=== PATIENT | male | born 1975 | race Caucasian/White ===

== ENCOUNTER 2023-04-26 09:17 | Emergency (ER) | payer MEDICARE ==
[2023-04-26] VITALS (24 sets, daily range): BP systolic 156–190; BP diastolic 91–108
[~2023-04-26] VITALS: Ht 177.8 cm; Wt 95.0 kg
[2023-04-26 09:58] LABS: BASO% 0.1 % (0-3); HEMATOCRIT 30.8 % (39.0-50.0); HEMOGLOBIN 9.8 g/dl (14.0-18.0); IMMATURE GRANULOCYTES 0.4 % (0.0-5.0); LYMPH% 3.3 % (15-41); MEAN CELL VOLUME 103.4 fL CALC (80.0-100.0); MEAN CORPUSCULAR HGB 32.9 pG CALC (26.0-32.0); MEAN CORPUSCULAR HGB CONC 31.8 g/dL CAL (32.0-36.0); MONO% 5.5 % (2-13); NEUT# 10.19 thou/uL (1.82-7.42); NEUT% 89.7 % (42-76); RED BLOOD COUNT 2.98 mill/uL (4.70-6.10); RED CELL DISTRI WIDTH 15.5 % (11.5-15.5)
[2023-04-26 10:31] LABS: ALBUMIN 4.6 g/dL (3.2-5.0); BILIRUBIN, TOTAL 0.6 mg/dL (0.2-1.3); POTASSIUM 4.9 mmol/l (3.5-5.1); TOTAL PROTEIN 7.8 g/dL (6.3-8.2)
[2023-04-26 10:45] LABS: CREATININE 10.7 mg/dL (0.7-1.3)
[2023-04-26] MEDS ORDERED: GABAPENTIN100 MG PO (11:43)
== END 2023-04-26 12:27 | disposition short-term general hospital (02) ==
LOC: ED 09:17
PROVIDERS: Family Medicine
PROC: 5A09357 Assistance with Respiratory Ventilation, Less than 24 Consecutive Hours, Continuous Positive Airway Pressure (ICD-10-PCS; principal; 2023-04-26)
DX: J96.00 Acute respiratory failure, unspecified whether with hypoxia or hypercapnia (principal); I16.1 Hypertensive emergency; I12.0 Hypertensive chronic kidney disease with stage 5 chronic kidney disease or end stage renal disease; E11.22 Type 2 diabetes mellitus with diabetic chronic kidney disease; N18.6 End stage renal disease; Z99.2 Dependence on renal dialysis; Z88.0 Allergy status to penicillin; Z20.822 Contact with and (suspected) exposure to COVID-19

== ENCOUNTER 2023-08-05 16:05 | Emergency (ER) | payer MEDICARE ==
[~2023-08-05] VITALS: Ht 177.8 cm; Wt 90.0 kg
[~2023-08-05 16:05] MED LIST: GABAPENTIN100 MG PO; LEVAQUIN750 M1 PO
[2023-08-05 17:11] VITALS: BP 122/63
[2023-08-05 17:28] LABS: BASO% 0.3 % (0-3); EOS% 1.1 % (0-8); HEMATOCRIT 36.8 % (39.0-50.0); HEMOGLOBIN 11.7 g/dl (14.0-18.0); IMMATURE GRANULOCYTES 0.2 % (0.0-5.0); MEAN CELL VOLUME 103.1 fL CALC (80.0-100.0); MEAN CORPUSCULAR HGB 32.8 pG CALC (26.0-32.0); MEAN CORPUSCULAR HGB CONC 31.8 g/dL CAL (32.0-36.0); MONO% 6.9 % (2-13); NEUT# 7.57 thou/uL (1.82-7.42); NEUT% 85.5 % (42-76); RED BLOOD COUNT 3.57 mill/uL (4.70-6.10); RED CELL DISTRI WIDTH 17.3 % (11.5-15.5)
[2023-08-05 18:16] LABS: ALBUMIN 4.9 g/dL (3.2-5.0); BILIRUBIN, TOTAL 0.6 mg/dL (0.2-1.3); TOTAL PROTEIN 8.3 g/dL (6.3-8.2)
[2023-08-05 18:17] LABS: CREATININE 6.1 mg/dL (0.7-1.3)
[2023-08-05 18:18] LABS: POTASSIUM 5.5 mmol/l (3.5-5.1)
[2023-08-05] MEDS ORDERED: CALCIUM GLUCONATE 1 GM in SODIUM CHLORIDE 0.9% 50 ML IV ONE (19:20)
[2023-08-05] MEDS ORDERED: PROCHLORPERAZINE EDISYLATE 10 MG/2 ML SDV IV ONE (19:20)
[2023-08-05 20:07] VITALS: BP 150/72
[2023-08-05 20:30] VITALS: BP 155/86
[2023-08-05 21:00] VITALS: BP 157/80
[2023-08-05] MEDS ORDERED: COMPAZINE10 MG PO (21:07)
[2023-08-05 21:44] VITALS: BP 157/80
== END 2023-08-05 21:44 | disposition home or self-care (01) ==
LOC: ED 16:05
PROVIDERS: Family Medicine
DX: R11.2 Nausea with vomiting, unspecified (principal); E87.5 Hyperkalemia; I12.0 Hypertensive chronic kidney disease with stage 5 chronic kidney disease or end stage renal disease; E11.22 Type 2 diabetes mellitus with diabetic chronic kidney disease; N18.6 End stage renal disease; Z99.2 Dependence on renal dialysis; Z95.1 Presence of aortocoronary bypass graft; Z87.891 Personal history of nicotine dependence

== ENCOUNTER 2024-03-25 18:30 | Emergency (ER) | payer MEDICARE ==
[2024-03-25] VITALS (12 sets, daily range): BP systolic 133–184; BP diastolic 70–104
[~2024-03-25] VITALS: Ht 177.8 cm; Wt 82.8 kg
[~2024-03-25 18:30] MED LIST changes: +COMPAZINE10 MG PO
[2024-03-25] MEDS ORDERED: ASPIRIN 81 MG/TAB PO ONE (18:35)
[2024-03-25] MEDS ORDERED: SODIUM CHLORIDE 0.9% 500 ML IV ONE (18:45)
[2024-03-25] MEDS ORDERED: NITROGLYCERIN 0.4 MG/TAB SL ONE (18:45)
[2024-03-25] MEDS ORDERED: NITROGLYCERIN IN D5W 250 ML IV ONE (18:45)
[2024-03-25 18:50] LABS: BASO% 0.8 % (0-3); EOS% 3.6 % (0-8); HEMATOCRIT 34.5 % (39.0-50.0); HEMOGLOBIN 10.2 g/dl (14.0-18.0); IMMATURE GRANULOCYTES 0.1 % (0.0-5.0); LYMPH% 6.6 % (15-41); MEAN CORPUSCULAR HGB 32.6 pG CALC (26.0-32.0); MEAN CORPUSCULAR HGB CONC 29.6 g/dL CAL (32.0-36.0); MONO% 7.1 % (2-13); NEUT# 6.18 thou/uL (1.82-7.42); NEUT% 81.8 % (42-76); RED BLOOD COUNT 3.13 mill/uL (4.70-6.10); RED CELL DISTRI WIDTH 18.6 % (11.5-15.5)
[2024-03-25] MEDS ORDERED: Heparin SODIUM (Porcine) 5,000 UNITS/ML SDV IV ONE (18:50)
[2024-03-25 18:51] LABS: MEAN CELL VOLUME 110.2 fL CALC (80.0-100.0)
[2024-03-25] MEDS ORDERED: Heparin SODIUM (Porcine) 500 ML IV ONE (18:55)
[2024-03-25 19:05] LABS: ALBUMIN 4.4 g/dL (3.2-5.0); BILIRUBIN, TOTAL 0.8 mg/dL (0.2-1.3); TOTAL PROTEIN 7.9 g/dL (6.3-8.2)
[2024-03-25 19:12] LABS: CREATININE 3.9 mg/dL (0.7-1.3); POTASSIUM 4.2 mmol/l (3.5-5.1)
[2024-03-25] MEDS ORDERED: MORPHINE SULFATE 4 MG/ML VIAL IV ONE ×2 (19:30→19:55)
[2024-03-25 19:31] LABS: INTERNATIONAL NORMALIZED RATIO 1.4 RATIO (0.7-1.3)
[2024-03-25 19:32] LABS: PROTHROMBIN TIME 12.8 SECONDS (9.0-12.5)
[2024-03-25] MEDS ORDERED: HYDROmorphone HCL 2 MG/AMP IV ONE ×2 (20:35→21:10)
== END 2024-03-25 21:21 | disposition short-term general hospital (02) ==
LOC: ED 18:30
PROVIDERS: Family Medicine
DX: I21.4 Non-ST elevation (NSTEMI) myocardial infarction (principal); I12.0 Hypertensive chronic kidney disease with stage 5 chronic kidney disease or end stage renal disease; E11.22 Type 2 diabetes mellitus with diabetic chronic kidney disease; N18.6 End stage renal disease; Z99.2 Dependence on renal dialysis; Z95.1 Presence of aortocoronary bypass graft; Z95.5 Presence of coronary angioplasty implant and graft
CPT/HCPCS: J1644